=== PATIENT | male | born 1985 | race Caucasian/White ===

== ENCOUNTER → 2017-09-25 | Day surgery (SDC) | payer OTHER ==
[~2017-09-25] VITALS: Ht 177.8 cm; Wt 136.2 kg
[~2017-09-25] MED LIST: ACETAMINOPHEN 1000 MG/100 ML 100 ML IV ONE; CHLORHEXIDINE GLUCONATE 2 % 1 PACK (2 CLOTHS) TOPICAL PRN; DO NOT ADM ANY ANTICOAGULANT DRUGS PRN; LACTATED RINGER'S 1000 ML IV PRN; LIDOCAINE 1%/EPINEPHrine 1:100,000 SOLN 30 ML VIAL ONE; LIDOCAINE HCL 1% PF 5 ML SYRINGE OTHER ONE; METOPROLOL TARTRATE 25 MG TAB PO PRN; MIDAZOLAM HCL 2 MG/2 ML VIAL ONE; POVIDONE IODINE 5% (ANTISEPSIS KIT) 4 APPLICATIONS EACH NARE PRN; PROPOFOL 200 MG/20 ML AMP IV ONE; SODIUM CHLORID 0.9% 500 ML IV PRN; ceFAZolin 2 GM PREMIX 50 ML IV SCH
--- NOTE | 2017-09-25 09:02 | MP ---
cc: Aldair Fishman MD DATE OF OPERATION: 09/25/2017 DATE OF OPERATION: 09/25/2017. PREOPERATIVE DIAGNOSIS: Desire for sterilization. POSTOPERATIVE DIAGNOSIS: Desire for sterilization. SURGEON: Aldair Fishman MD PROCEDURE PERFORMED: Vasectomy. OPERATIVE FINDINGS: Successful bilateral vasectomy. HISTORY OF PRESENT ILLNESS: Vaughn Ruby is a 32-year-old male with desire for sterilization. Attempted vasectomy under local anesthesia was unsuccessful due to difficulty of obtaining the vas and the patient comfort. Therefore, we decided to perform a vasectomy under anesthesia. DETAILS OF PROCEDURE: After proper informed consent was obtained, the patient was taken to the operating room and laid supine on the table. The patient was placed under monitored anesthesia care. The patient was then prepped and draped in standard sterile fashion, after proper timeout was completed, the vas was isolated between the thumb and middle finger on the left. After isolation the skin incision was made with a 15 blade. Careful spreading was created with a clamp in order to reach down to the level of the vas. At this point, the vas was grasped using the ring forceps. There was significant amount of tissue surrounding the vas. A careful dissection separation of this tissue was done in order to visualize and skeletonize the vas. At this point, this was brought up and clamped proximally and distally with metal clips. A section of the vas was then removed, approximately 1 cm in length. After this, 2 ends of the vas were then cauterized. The vas was then dropped back into its position. The same procedure was done at the right side. After complete vasectomy bilaterally, the skin incision was closed using a 4-0 plain gut in a horizontal fashion. The patient was then awoken from anesthesia and taken to PACU in good and stable condition. The patient tolerated the procedure well without complications. DISPOSITION: Discharge home with followup in clinic in 1-2 weeks. Aldair Fishman MD SML/TL , 08:43 AM , 09:01 AM
[2017-09-25 09:30] VITALS: BP 137/75; PULSE 72; RESP 18; TEMP 97.6; O2SAT 97
== END | disposition home or self-care (01) ==
LOC: HSDC 05:24
PROVIDERS: ATTEND Urology
DX: Z30.2 Encounter for sterilization (principal); E66.9 Obesity, unspecified; Z68.41 Body mass index [BMI] 40.0-44.9, adult
CPT/HCPCS: 00921; 55250; J0131; J0690; J2250; J3010